=== PATIENT | male | born 1950 | race Caucasian/White ===

== ENCOUNTER 2020-03-10 13:09 | Outpatient (CLI) | payer MEDICARE ==
--- NOTE | 2020-03-10 14:48 | CT ---
CT Abdomen Pelvis W WO con History: Microhematuria Comparison: None. Findings: Lung bases are relatively clear aside from calcified granulomas and noncalcified sub-3 mm n odules. No pericardial effusion. Cholelithiasis without cholecystitis. Mild renal vascular calcifications. No hydroureteronephrosis or nephroureterolithiasis. No secondary evidence for a recently passed stone . The bladder wall is trabeculated. Within the bladder dome to the left of midline is what appears to b e a intramural diverticulum as there is no change of attenuation on the pre and postcontrast imaging sequence although the delayed sequences of mild increased density which is likely sequelae of some extension of contrast within the diverticulum. There is also a intramural diverticulum the right posterior lateral urinary bladder as well as a posterior diverticulum. Prostate is enlarged with extensive calcifications. Fusiform dilatation of the infrarenal abdominal aorta measuring up to 2.8 cm for a length of 2.3 cm. Distal to this is a more fusiform dilatation measuring up to 3.5 cm for length of 4.5 cm. Mild prominence of the iliac arteries. Small endophytic cyst right kidney measuring 9 mm. No abnormal urothelial enhancing mass. Small parap elvic cysts bilaterally. Mild diverticular disease sigmoid colon without active current inflammation. Impression: 1. No abnormal renal enhancing mass or urothelial mass. 2. Extensive diverticulum throughout the trabeculated bladder suggesting chronic bladder obstruction. 3. Moderate prostatomegaly with internal calcifications. 4. Moderate diverticular disease sigmoid colon without active current inflammation. 5. Cholelithiasis without cholecystitis. 6. Mild stranding of the proximal small bowel mesentery suggesting chronic mesenteric panniculitis. 7. Infrarenal abdominal aortic ectasia and aneurysmal dilatation. 8. 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
[2020-03-10] MEDS ORDERED: Iopamidol-370 76% 500 ML 1 ML ONE (16:29)
== END 2020-03-10 13:10 | disposition home or self-care (01) ==
LOC: BICCT 13:09
PROVIDERS: ATTEND Urology
DX: R31.29 Other microscopic hematuria (principal); N40.0 Benign prostatic hyperplasia without lower urinary tract symptoms; N32.3 Diverticulum of bladder; K57.90 Diverticulosis of intestine, part unspecified, without perforation or abscess without bleeding; K80.20 Calculus of gallbladder without cholecystitis without obstruction; I77.811 Abdominal aortic ectasia; I71.9 Aortic aneurysm of unspecified site, without rupture
CPT/HCPCS: 74178; 82565; Q9967

== ENCOUNTER 2021-04-23 12:57 | Outpatient (CLI) | payer MEDICARE ==
[2021-04-23 13:47] LABS: Hemoglobin 14.4 g/dL (13.5-17.5); Mean Corpuscular HGB CONC 33.6 g/dL (32.0-36.0); Mean Corpuscular Hemoglobin 31.2 pg (27.0-33.0); Mean Corpuscular Volume 92.8 fl (81.2-95.1); Mean Platelet Volume 10.7 fl (7.4-10.4); Platelet Count 242 10x3/uL (150-450); RBC Distribution Width 13.2 % (11.5-14.5); Red Blood Cell (RBC) Count 4.61 10x6/uL (4.32-5.72); White Blood Cell (WBC) Count 7.4 10x3/uL (3.5-10.5)
[2021-04-23 13:54] LABS: Anion Gap 11 mmol/L (10-20); BUN (Urea Nitrogen) 11 mg/dL (8.4-25.7); Calc. Creatinine Clearance 0 mL/min (70-130); Calcium 9.4 mg/dL (7.8-10.44); Carbon Dioxide 28 mmol/L (23-31); Chloride 106 mmol/L (98-107); Glucose 122 mg/dL (80-115); Potassium 4.3 mmol/L (3.5-5.1); Sodium 141 mmol/L (136-145)
[2021-04-23 13:55] LABS: INR-International Normal Ratio 0.9; Prothrombin Time 10.3 sec (9.5-12.1)
[2021-04-23 14:07] LABS: Bilirubin Neg (Negative); Blood, Urine Negative (Negative); Clarity Clear (Clear); Glucose, Urine (Dipstick) Normal (Negative); Ketone, Urine Negative (Negative); Leukocyte Negative (Negative); Nitrite Negative (Negative); Protein, Urine (Dipstick) Negative (Neg-Trace); Urobilinogen Normal mg/dL (Less than 2)
[2021-04-23 14:24] LABS: Bacteria/HPF None Seen HPF (None Seen); RBC/HPF 0-3 HPF (0-3); Squamous Epithelial None Seen HPF (0-3); WBC/HPF 0-3 HPF (0-3)
[2021-04-24 00:10] LABS: SARS-CoV-2 PCR by NAA Not Detected (NotDetected)
== END 2021-04-23 12:58 | disposition home or self-care (01) ==
LOC: LABBT 12:57
PROVIDERS: ATTEND Urology
DX: Z01.818 Encounter for other preprocedural examination (principal); Z12.5 Encounter for screening for malignant neoplasm of prostate; R97.20 Elevated prostate specific antigen [PSA]; E11.9 Type 2 diabetes mellitus without complications; E78.5 Hyperlipidemia, unspecified; N40.0 Benign prostatic hyperplasia without lower urinary tract symptoms; N42.39 Other dysplasia of prostate; R31.29 Other microscopic hematuria; K80.20 Calculus of gallbladder without cholecystitis without obstruction; I77.819 Aortic ectasia, unspecified site; N32.3 Diverticulum of bladder; Z20.822 Contact with and (suspected) exposure to COVID-19
CPT/HCPCS: 80048; 81001; 85027; 85610; 85730; 87086; 93005; U0003; U0005; 93010